=== PATIENT | male | born 1970 | race Two or more races ===

== ENCOUNTER 2018-11-19 16:19 | Emergency (ER) | payer MEDICAID, OTHER ==
[~2018-11-19] VITALS: Ht 172.7 cm; Wt 99.8 kg
[2018-11-19 17:51] LABS: Basophils # (auto) 0 uL; Basophils % (auto) 0.5 % (0.0-2.0); Eosinophils # (auto) 0.2 uL; Eosinophils % (auto) 1.7 % (0.0-7.0); Hematocrit 45.8 % (41.0-53.0); Hemoglobin 15.3 g/dL (13.5-17.5); Lymphocytes # (auto) 2.8 uL; Lymphocytes % (auto) 31.1 % (10.0-50.0); Mean Corpuscular Hgb Conc. 33.4 g/dL (32.0-36.0); Monocytes # (auto) 0.9 uL; Monocytes % (auto) 10.3 % (0.0-12.0); Neutrophils % (auto) 56.4 % (37.0-80.0); Nucleated Red Blood Cells % 0.1 %; Platelet Count (auto) 277 10^3/uL (140-450); Red Blood Cells 5.66 10^6/uL (4.5-5.90); Red Cell Distribution Width 13.9 % (11.8-14.3)
[2018-11-19 18:01] LABS: Anion Gap 7 (5-15); Blood Urea Nitrogen 16 mg/dL (7-18); Calcium 8.5 mg/dL (8.5-10.1); Carbon Dioxide 25 mmol/L (21-32); Chloride 111 mmol/L (98-107); Glucose 86 mg/dL (74-106); Potassium 3.8 mmol/L (3.5-5.1); Sodium 143 mmol/L (136-145)
[2018-11-19 18:08] LABS: Alanine Aminotransferase 33 U/L (16-61); Alkaline Phosphatase 109 U/L (45-117); Aspartate Aminotransferase 26 U/L (15-37); Bilirubin, Total 0.4 mg/dL (0.2-1.0); GFR African American 89 mL/min; GFR Non-African American 74 mL/min; Total Protein 7.9 g/dL (6.4-8.2)
[2018-11-19 19:30] VITALS: BP 150/90
== END 2018-11-19 19:40 | disposition home or self-care (01) ==
LOC: ER 16:26
DX: R07.89 Other chest pain (principal); R42 Dizziness and giddiness; E78.5 Hyperlipidemia, unspecified
CPT/HCPCS: 36415; 71046; 80053; 83735; 84484; 85025; 85379; 93005